=== PATIENT | female | born 1965 | race Hispanic/Latino ===

== ENCOUNTER 2016-11-01 15:49 | Emergency (ER) | payer OTHER ==
[~2016-11-01] VITALS: Ht 167.6 cm; Wt 73.9 kg
[2016-11-01 15:56] VITALS: BP 165/96
--- NOTE | 2016-11-01 16:37 | RADIOLOGY REPORT ---
EXAMINATION: XR ANKLE, LEFT CLINICAL INFORMATION: Pain and swelling status-post injury. COMPARISON: None TECHNIQUE: AP, lateral, and mortise views of the left ankle. FINDINGS: Bony alignment and mineralization are normal. The ankle mortise is intact. There is no acute fracture or dislocation. Boehler's angle is normal. No calcaneal spur is seen. There is no left ankle joint effusion. There is moderate soft tissue swelling adjacent to the lateral malleolus. IMPRESSION: 1. There is moderate soft tissue swelling adjacent to the left lateral malleolus. 2. No left ankle fracture, dislocation or joint effusion is seen.
--- NOTE | 2016-11-01 16:41 | ED UPPER/LOWER EXTREMITY COMPL ---
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 ICE PACK PROVIDED. PT MEDICATED WITH MOTRIN 400MG IN TRIAGE. Triage Nurses Notes Reviewed? yes HPI: This patient is a 51-year-old female who presented to the emergency department today accompanied by her daughter for evaluation of the left ankle pain status post fall. The patient does not speaking much, so her daughter translated. The patient reported that she was sitting on the couch and when she got up to answer the door to let her daughter in, her leg felt numb after sitting on it for so long and her left ankle gave out underneath her. She reported that it seems twisted she felt a, "pop." The pain gets up to an 8 out of 10, is throbbing, and located primarily in the outside of her ankle. The pain has been constant since onset and worse with ambulation. The patient reported that she is able to walk, but with significant pain. She denied any current numbness or tingling in her extremity. No knee pain. The patient denied hitting her head or losing consciousness. (CHELA MONTIEL PA-C) Past History Travel History Traveled to [place] past 21 day No Medical History Any Pertinent Medical History? see below for history Neurological: migraine Cardiovascular: hypertension Endocrine: hypothyroidism Surgical History Surgical History: non-contributory Psychosocial History What is your primary language German Tobacco Use: Never used Family History Hx Contributory? No (CHELA MONTIEL PA-C) Review of Systems Review of Systems Constitutional: Reports: no symptoms. EENTM: Reports: no symptoms. Respiratory: Reports: no symptoms. Cardiovascular: Reports: no symptoms. Gastrointestinal/Abdominal: Reports: no symptoms. Musculoskeletal: Reports: see HPI. Skin: Reports: no symptoms. Neurological/Psychological: Reports: no symptoms. All Other Systems: Reviewed and Negative (CHELA MONTIEL PA-C) Physical Exam Physical Exam General Appearance: well developed/nourished, no apparent distress, alert, awake Comments: Well-developed well-nourished person in no acute distress HEENT: Head normocephalic/atraumatic, moist mucous membranes Neck: Supple, no lymphadenopathy Back: Antalgic gait Respiratory: No respiratory distress. Speaking in full sentences Left foot, ankle: Edema noted to the lateral malleolus. Tenderness to palpation over the lateral malleolus. No overlying erythema or ecchymosis. No bony or muscular deformities noted. Range of motion of the ankle limited due to pain. Capillary refill less than 2 seconds. Dorsalis pedis and posterior tibialis pulses 2+ and strong. Neuro: Alert and oriented x3 Psych: Mood affect normal, normal memory normal judgment. Skin: Warm and dry, no rash on exposed skin (TIANA SELLERS,CHELA) Progress Differential Diagnosis: arterial insufficiency, cellulitis, CHF, compartment syndrome, contusion, dislocation, DVT, fracture, gout, septic arthritis, sprain, tendon injury Plan of Care: Orders Procedure Date/time Status Durable Medical Equipment 11/01 1647 Active Current Medications Sig/Alcides Start time Last Medication Dose Stop Time Status Admin Tramadol HCl 50 MG ONCE ONE 11/01 1700 AC (Ultram) 11/01 1701 Diagnostic Imaging: Viewed by Me: Radiology Read. Discussed w/RAD: Radiology Read. Radiology Impression: PATIENT: CORKY AGUILLON PRESENT AGE: 51 PATIENT ACCOUNT NO: [id number] : 67 LOCATION: [facility] ORDERING PHYSICIAN: CHELA MONTIEL PA-C SERVICE DATE: 11/01/16 EXAM TYPE: RAD - XRY-ANKLE 3 OR MORE VIEWS L EXAMINATION: XR ANKLE, LEFT CLINICAL INFORMATION: Pain and swelling status-post injury. COMPARISON: None TECHNIQUE: AP, lateral, and mortise views of the left ankle. FINDINGS: Bony alignment and mineralization are normal. The ankle mortise is intact. There is no acute fracture or dislocation. Boehler's angle is normal. No calcaneal spur is seen. There is no left ankle joint effusion. There is moderate soft tissue swelling adjacent to the lateral malleolus. IMPRESSION: 1. There is moderate soft tissue swelling adjacent to the left lateral malleolus. 2. No left ankle fracture, dislocation or joint effusion is seen. DICTATED BY: LYNDSAY FRYE MD DATE/TIME DICTATED:11/01/161631 CARD DECORATOR:BETI DATE/TIME TRANSCRIBED:1631 CONFIDENTIAL, DO NOT COPY WITHOUT APPROPRIATE AUTHORIZATION. < Electronically signed in Other Vendor System> SIGNED BY: LYNDSAY FRYE MD 11/01/161636 (CHELA MONTIEL PA-C) Departure Departure Disposition: HOME OR SELF CARE Condition: Stable Clinical Impression Primary Impression: Ankle sprain Qualifiers: Encounter type: initial encounter Involved ligament of ankle: unspecified ligament Laterality: left Qualified Code: S93.402A - Sprain of unspecified ligament of left ankle, initial encounter Referrals: MARIO NARAYANAN,MARINO (PCP/Family) MONICA MONTENEGRO DPM Additional Instructions: Use the crutches provided to you here in the emergency department as needed. Weightbearing as tolerated. Rest your ankle. You may apply ice to the affected area for 15-20 minutes, 3-4 times a day. Use the Alex wrap provided to you here in the emergency Department for extra compression and support of your ankle. Elevate your leg when possible. You may take [id number] ibuprofen for pain and inflammation. You may call the orthopedic physician whose information has been provided to you in this packet for further evaluation and management if your symptoms persist after 5-7 days. As discussed, there is always a chance that a small fracture was missed on the x-ray. Return to the emergency department for any worsening symptoms or concerns. Departure Forms: Customer Survey General Discharge Information Prescriptions: Current Visit Scripts Ibuprofen 1 TAB PO TID PRN PAIN AND INFLAMMATION #30 TAB (CHELA MONTIEL PA-C) PA/BRAZING MACHINE OPERATOR Co-Sign Statement Statement: ED Attending supervision documentation- [] I saw and evaluated the patient. I have also reviewed all the pertinent lab results and diagnostic results. I agree with the findings and the plan of care as documented in the PA's/BRAZING MACHINE OPERATOR's documentation. [x] I have reviewed the ED Record and agree with the PA's/BRAZING MACHINE OPERATOR's documentation. [] Additions or exceptions (if any) to the PAs/BRAZING MACHINE OPERATOR's note and plan are summarized below: [] (KATYA NARAYANAN,KELY)
[2016-11-01] MEDS ORDERED: IBUPROFEN800 M1 PO (16:56)
== END 2016-11-01 17:27 ==
LOC: ERH 15:49
DX: S93.402A Sprain of unspecified ligament of left ankle, initial encounter (principal); X58.XXXA Exposure to other specified factors, initial encounter
CPT/HCPCS: 73610-LT